=== PATIENT | female | born 1995 ===

== ENCOUNTER 2025-03-20 10:45 | Emergency (ER) | payer OTHER, SELFPAY ==
[2025-03-20 10:45] VITALS: BMI 28.9
[2025-03-20 10:52] VITALS: BP 138/80
--- NOTE | 2025-03-20 10:59 | ED.GENMED ---
History of Present Illness
General
Chief Complaint: Skin Problem
Time Seen by Provider: 03/20/25 10:59
History of Present Illness
History of Present Illness:
TIME OF INITIAL ENCOUNTER: 11:45 AM
HPI: The patient started having upper buttock pain over the past couple of days. She went to urgent care today. There was some concern for fevers and chills and was sent here for further evaluation. Currently she is afebrile.
EXAM:
GENERAL: Well appearing in no distress
HEENT: Moist oral mucosa
NEUROLOGIC: Excellent strength all extremities, no obvious coordination deficits
PSYCHIATRIC: Appropriate mental status, normal insight and judgement
EXTREMITIES: Nontender, no edema, moves all extremities equally
SKIN: Pilonidal abscess left greater than right upper buttocks measuring approximately 3 cm
NUMBER AND COMPLEXITY OF PROBLEMS ADDRESSED AT THE ENCOUNTER
� Chronic conditions affecting care: No significant chronic medical issues
� Acute Exacerbation and/or Progression of Chronic Illness: This is an acute problem
� Differential Diagnosis includes: Gluteal abscess, pilonidal cyst/abscess
AMOUNT AND/OR COMPLEXITY OF DATA TO BE REVIEWED AND ANALYZED
� I performed an independent evaluation of and my interpretation is:
EKG:
CT:
X-rays:
Laboratory Studies: Wound culture pending
Other:
� Review of other/old records: No old records available for review in [facility]
� Clinical information was obtained by an independent historian: I spoke to boyfriend at bedside
� Prescriptions/Medications Considered but not given:
� Further testing considered but not performed: It does not appear that blood work would change any management. Therefore it was not ordered. Her vital signs are not consistent with sepsis.
RISK OF COMPLICATIONS AND/OR MORBIDITY OR MORTALITY OF PATIENT MANAGEMENT
� Social determinants of health affecting care: Lives at home
� Discussion with other providers:
� Escalation of care including admission/observation vs risk of discharge considered: I anesthetized the area and drained a moderate amount of pus. Placed on Bactrim and gave Toradol. Recommend NSAIDs at home. To follow-up
with surgeon if needed.
ANY OTHER UPDATES:
Phy Exam
Physical Exam
Physical Exam:
See HPI
Course
Orders/Labs/Results
Orders:
Orders
03/20/25 12:06
Ketorolac [Toradol] 30 mg IM NOW STA
Sulfamethox./Trimethoprim Ds [Bactrim Ds 800 mg/160 mg] 1 tablet PO NOW STA
03/20/25 12:13
Wound Culture [Wound/Abscess/Other Culture] Urgent
ELIZABETH Source: Abscess
Specimen Description:
Comment: pilonidal
Vital Signs
Initial and Last Documented VS:
Initial Vital Signs
Temp Pulse Resp BP Pulse Ox
37.2 C 96 17 138/80 98
03/20/25 10:52 03/20/25 10:52 03/20/25 10:52 03/20/25 10:52 03/20/25 10:52
Last Documented Vital Signs
Temp Pulse Resp BP Pulse Ox
37.2 C 96 17 138/80 98
03/20/25 10:52 03/20/25 10:52 03/20/25 10:52 03/20/25 10:52 03/20/25 10:52
Procedures
Incision/Drainage/Joint Aspiration
Left Upper Buttock:
Anethesia: 1% Lidocaine with Epi
Preparation: cleaned with Hibiclens
Type of procedure: incise and drain
Nature of site: abscess
Description of abscess: less than 3cm
Loculations broken up: Yes
How much fluid was obtained?: small amount
Fluid description: purulent
Treatment: left open for drainage
*Critical Care Note
Total Time (30-74mins, 75-104mins- exclusive of procedures): Not Applicable
ED Attending Note
-
Portions of this chart may have been created with voice recognition software.� Occasional wrong word or��sound alike� substitutions may have occurred due to the inherent limitations of voice recognition software.
Discharge Plan
Departure
Patient Disposition: Home (Routine Discharge)
Date of Disposition: 03/20/25
Time of Disposition: 12:07
Patient with high blood pressure during this ER visit?: Yes
Discharge Problem:
Pilonidal abscess
Instructions: Pilonidal cyst, BLOOD PRESSURE, Skin Abscess
Prescriptions:
New
sulfamethoxazole-trimethoprim [Bactrim DS] 800-160 mg tablet
1 tab PO BID Qty: 14 0RF
Referrals:
NONE,* [Family Provider, Internal Medicine]
Werner Velez MD [Active, Surgical]
Activity Restrictions/Additional Instructions:
Next dose of Bactrim this evening. Return here if worse or other concerns. If symptoms persist, I recommend that you follow-up with a surgeon such as Dr. Velez. I recommend 3-4 [id number] ibuprofen (Motrin) every 8 hours with food for a
few days. Return here if worse.
Interventions
Interventions:
*Risk Screen - Suicide Last Done: 03/20/25 10:54
*General Assessment Last Done: 03/20/25 10:54
*Neglect/Abuse Screening Last Done: 03/20/25 10:54
*ED COVID-19 Vaccine History Last Done: 03/20/25 10:54
Discharge Date and Time
Print Language: DIVEHI
[2025-03-20] MEDS: BACTRIM DS 800 MG/160 MG 1 TABLET PO (12:22)
[2025-03-20] MEDS: TORADOL 30 MG IM (12:22)
[2025-03-20 12:24] VITALS: BP 118/74
== END 2025-03-20 12:26 | disposition home or self-care (01) ==
LOC: EMR 10:45
PROVIDERS: EMERGENCY PHYSICIAN Emergency Medicine
DX: L05.01 Pilonidal cyst with abscess (principal); R03.0 Elevated blood-pressure reading, without diagnosis of hypertension
CPT/HCPCS: 99284; 10060; 96374; 87070; 87077; 87205